=== PATIENT | female | born 1960 | race Caucasian/White ===

== ENCOUNTER 2018-09-14 10:03 | Day surgery (SDC) | payer OTHER ==
[~2018-09-14] VITALS: Ht 170.2 cm; Wt 92.9 kg
[2018-09-14] VITALS (9 sets, daily range): BP systolic 131–146; BP diastolic 70–82; PULSE 44–70; RESP 14–22; Ht 170.2 cm; Wt 92.9 kg
[2018-09-14] MEDS ORDERED: PROZAC PO (10:53)
[2018-09-14] MEDS ORDERED: BUSPIRONE PO (10:53)
[2018-09-14] MEDS ORDERED: LETROZOLE PO (10:53)
[2018-09-14] MEDS ORDERED: PROPOFOL 40 ML ONE (11:42)
[2018-09-14] MEDS ORDERED: LIDOCAINE 2% (SDV) 5 ML INJ ONE (11:42)
--- NOTE | 2018-09-14 11:43 | PREAC ---
Date/Time of Note Date/Time of Note DATE: 09/14/18 TIME: 11:40 Anesthesia Eval and Record Evaluation Time Pre-Procedure Interview DATE: 09/14/18 TIME: 11:40 Age 57 Sex female NPO: 8 hrs Preoperative diagnosis abd pain screening Planned procedure EGD Colonoscopy Past Medical History Past Medical History: Includes Cardio: HTN Surgery & Anesthesia Issues No known issue Meds Anticoagulation: No Beta Ceferino within 24 hr: No Reason Beta Ceferino not given: COPD Reported Medications [Letrozole] No Conflict Check, PO DAILY 09/14/18 [Buspirone] No Conflict Check, PO BID 09/14/18 [Prozac] No Conflict Check, PO DAILY 09/14/18 Meds reviewed: Yes Allergies Coded Allergies: Sulfa (Sulfonamide Antibiotics) (Verified Allergy, Unknown, RASH, PRURITUS, 09/14/18) codeine (Verified Allergy, Unknown, RASH, PRURITUS, 09/14/18) Uncoded Allergies: SEAFOOD/SHELLFISH (Allergy, Unknown, RASH, DYSPNEA, 09/14/18) Allergies Reviewed: Yes Labs/Studies Labs Reviewed: Reviewed by anesthesiologist test: N/A Pre-procedure Exam Last vitals Vital Signs Date Temp Pulse Resp B/P (MAP) Pulse Ox O2 O2 Flow FiO2 Time Delivery Rate 09/14/18 96.6 70 20 138/78 100 Room Air 11:36 (98) Airway: Adequate mouth opening Mallampati: Mallampati III Teeth: Normal Lung: Normal Heart: Normal ASA Physical Status ASA physical status: 3 Emergency: None Planned Anesthetic General/MAC: MAC Pre-operative Attestations Prior to commencing anesthesia and surgery, the patient was re-evaluated, there was verification of: *The patient's identity *The results of appropriate recent lab work and preoperative vital signs *The above evaluation not changing prior to induction *Anesthetic plan, risk benefits, alternative and complications discussed with patient/family; questions answered; patient/family understands, accepts and wishes to proceed. EVELYNE FERRIS MD Sep 14, 2018 11:43
--- NOTE | 2018-09-14 12:14 | PAC ---
Date/Time of Note Date/Time of Note DATE: 09/14/18 TIME: 12:13 Post-Anesthesia Notes Post-Anesthesia Note Last documented vital signs Vital Signs Date Temp Pulse Resp B/P (MAP) Pulse Ox O2 O2 Flow FiO2 Time Delivery Rate 09/14/18 96.6 70 20 138/78 100 Room Air 11:36 (98) Activity: WNL Respiratory function: WNL Cardiovascular function: WNL Mental status: Baseline Pain reasonably controlled: Yes Hydration appropriate: Yes Nausea/Vomiting absent: Yes EVELYNE FERRIS MD Sep 14, 2018 12:14
== END 2018-09-14 13:02 | disposition home or self-care (01) ==
LOC: GIL 10:03
PROVIDERS: ATTEND Internal Medicine Gastroenterology
DX: Z12.11 Encounter for screening for malignant neoplasm of colon (principal); K64.8 Other hemorrhoids; K29.50 Unspecified chronic gastritis without bleeding; I10 Essential (primary) hypertension
CPT/HCPCS: 88305; 88312